=== PATIENT | male | born 1950 | race Caucasian/White ===

== ENCOUNTER 2021-01-19 12:52 | Outpatient (REF) | payer MEDICARE, MEDICAID, SELFPAY ==
--- NOTE | ~2021-01-19 | MR_ITS ---
EXAMINATION: MR BRAIN WITHOUT CONTRAST CLINICAL INFORMATION: Ataxia COMPARISON: None TECHNIQUE: Routine unenhanced MRI of the brain. FINDINGS: No intracranial hemorrhage, tumors or acute infarcts are visualized. On a qualitative basis, the cerebellar inter-folial sulci appear prominent relative to the overall degree of moderate diffuse commensurate prominence of ventricles and sulci elsewhere. Axial images demonstrate diminutive appearance of the middle cerebellar peduncles (series 5 image 27). Findings are suspicious for cerebellar volume loss (series 3 image 13). Normal flow-related signal intensity is identified in the major intracranial vessels and dural sinuses. No marrow abnormalities are identified. Susceptibility weighted images reveal no evidence of acute or chronic hemorrhage within the brain parenchyma. Bilateral ocular lens extractions are visualized. Moderate left mastoid effusion is noted. No gross middle ear cavity effusions are visualized. The nasopharynx is grossly normal in appearance. No focal T2 hyperintensity abnormalities are noted within the mamillary bodies or dorsal medial thalamic regions. MR/MR head/brain wo con IMPRESSION: Findings suspicious for diffuse cerebellar atrophy. Cerebellar atrophy may be idiopathic or associated with a number of entities including EtOH related cerebellar degeneration in the correct clinical setting.
== END 2021-01-19 12:53 | disposition home or self-care (01) ==
LOC: HO.MRI 12:52
PROVIDERS: Visit Provider Psychiatry & Neurology Neurology
DX: R27.0 Ataxia, unspecified (principal)
CPT/HCPCS: 70551